=== PATIENT | female | born 2000 | race Caucasian/White ===

== ENCOUNTER 2019-10-12 21:21 | Emergency (ER) | payer MEDICAID ==
[~2019-10-12] VITALS: Ht 152.4 cm; Wt 62.0 kg
--- NOTE | 2019-10-12 21:26 | PHYS DOC ---
General Adult HPI: HPI: Patient is a 19 year old female who presents with above hx and complaints of dog bite. Pt. however left before completing check in. Review of Systems: Review of Systems: Pt. left before checkin. Heart Score: Risk Factors: Risk Factors: DM, Current or recent (<one month) smoker, HTN, HLP, family history of CAD, obesity. Risk Scores: Score 0 - 3: 2.5% MACE over next 6 weeks - Discharge Home Score 4 - 6: 20.3% MACE over next 6 weeks - Admit for Clinical Observation Score 7 - 10: 72.7% MACE over next 6 weeks - Early Invasive Strategies Physical Exam: PE: Left before check in. EKG: EKG: [] Radiology/Procedures: Radiology/Procedures: [] Course & Med Decision Making: Course & Med Decision Making Pertinent Labs and Imaging studies reviewed. (See chart for details) Dog bite. Pt. left before complete check in. [] Dragon Disclaimer: Dragon Disclaimer: This electronic medical record was generated, in whole or in part, using a voice recognition dictation system. Departure Departure: Disposition: 01 HOME/RESIDENCE PRIOR TO ADM Condition: KRISS ESPINOSA MD October 12, 2019 21:26
== END 2019-10-12 21:22 | disposition left against medical advice (07) ==
LOC: ER 21:21
DX: T14.8XXA Other injury of unspecified body region, initial encounter (principal); Z53.21 Procedure and treatment not carried out due to patient leaving prior to being seen by health care provider; W54.0XXA Bitten by dog, initial encounter; Y93.89 Activity, other specified; Y92.89 Other specified places as the place of occurrence of the external cause; Y99.8 Other external cause status

== ENCOUNTER 2019-11-04 09:55 | Emergency (ER) | payer BC, MEDICAID ==
[~2019-11-04] VITALS: Ht 175.3 cm; Wt 101.7 kg
[2019-11-04 10:06] VITALS: BP 139/87
[2019-11-04] MEDS ORDERED: METOCLOPRAMIDE HCL 10 MG/2 ML VIAL. IV ONE (10:45)
[2019-11-04] MEDS ORDERED: diphenhydrAMINE 50 MG/ML VIAL IVP ONE (10:45)
[2019-11-04] MEDS ORDERED: KETOROLAC 30 MG/ML VIAL. IV ONE (10:45)
[2019-11-04] MEDS ORDERED: IV NORMAL SALINE 1,000ML 1,000 ML IV ONE (10:45)
[2019-11-04] MEDS ORDERED: methylPREDNISolone SOD SUCC PF 125 MG/2 ML VIAL. IV ONE (10:45)
[2019-11-04] MEDS ORDERED: methylPREDNISolone SOD SUCC PF 125 MG/2 ML VIAL. ONE (10:49)
[2019-11-04] MEDS ORDERED: METO10TA81 PO (11:18)
[2019-11-04] MEDS ORDERED: PRED20TA PO (11:18)
--- NOTE | 2019-11-04 11:18 | PHYS DOC ---
Past History Past Medical History: No Pertinent History Past Surgical History: Tonsillectomy Alcohol Use: Rarely General Adult EDM: Chief Complaint: HEADACHE HPI: HPI: 19-year-old female presents with a two-week history of headache that she describes as global and throbbing. She denies any lateralizing neurologic weakness. She denies any fever or neck pain. She has had some bit of a rash on her elbows that she states is pruritic. She has been taking Tylenol and Motrin at home without much relief. She does describe both photophobia and phonophobia. She has had some nausea secondary to the severity of the headache. [] Review of Systems: Review of Systems: Constitutional: Denies fever or chills Eyes: Denies change in visual acuity HENT: Denies nasal congestion or sore throat Respiratory: Denies cough or shortness of breath Cardiovascular: Denies chest pain or edema GI: Denies abdominal pain, nausea, vomiting, bloody stools or diarrhea : Denies dysuria Musculoskeletal: Denies back pain or joint pain Integument: Rash on elbows faint rash on chest Neurologic: Reports headache Endocrine: Denies polyuria or polydipsia Lymphatic: Denies swollen glands Psychiatric: Denies depression or anxiety Heart Score: Risk Factors: Risk Factors: DM, Current or recent (<one month) smoker, HTN, HLP, family history of CAD, obesity. Risk Scores: Score 0 - 3: 2.5% MACE over next 6 weeks - Discharge Home Score 4 - 6: 20.3% MACE over next 6 weeks - Admit for Clinical Observation Score 7 - 10: 72.7% MACE over next 6 weeks - Early Invasive Strategies Current Medications: Current Meds: Current Medications Medications (Trade) Dose Ordered Sig/Daniel Start Time Stop Time Status Last Admin Dose Admin Diphenhydramine HCl (Benadryl) 25 mg 1X ONCE 11/04/19 10:45 11/04/19 10:46 DC 11/04/19 10:45 25 MG Ketorolac Tromethamine (Toradol 30mg Vial) 30 mg 1X ONCE 11/04/19 10:45 11/04/19 10:46 DC 11/04/19 10:45 30 MG Methylprednisolone Sodium Succinate (SOLU-Medrol 125MG VIAL) 125 mg STK-MED ONCE 11/04/19 10:49 11/04/19 10:50 DC Metoclopramide HCl (Reglan Vial) 10 mg 1X ONCE 11/04/19 10:45 11/04/19 10:46 DC 11/04/19 10:45 10 MG Sodium Chloride 1,000 ml @ 1,000 mls/hr 1X ONCE 11/04/19 10:45 11/04/19 11:44 11/04/19 10:45 1,000 MLS/HR Allergies: Allergies: Allergies Coded Allergies Type Severity Reaction Last Updated Verified No Known Drug Allergies 11/04/19 No Physical Exam: PE: Constitutional: Well developed, well nourished, mild to moderate distress, non- toxic appearance. [] HENT: Normocephalic, atraumatic, bilateral external ears normal, oropharynx moist, no oral exudates, nose normal. [] Eyes: PERRLA, EOMI, conjunctiva normal, no discharge. [] Neck: Normal range of motion, no tenderness, supple, no stridor. [] Cardiovascular:Heart rate regular rhythm, no murmur [] Lungs & Thorax: Bilateral breath sounds clear to auscultation [] Abdomen: Bowel sounds normal, soft, no tenderness, no masses, no pulsatile masses. [] Skin: Eczematous appearing rash to the elbows. [] Back: No tenderness, no CVA tenderness. [] Extremities: No tenderness, no cyanosis, no clubbing, ROM intact, no edema. [] Neurologic: Alert and oriented X 3, normal motor function, normal sensory function, no focal deficits noted. [] Psychologic: Anxious l. [] Current Patient Data: Labs: Laboratory Tests Test 11/04/19 10:21 POC Urine HCG, Qualitative hcg negative (Negative) Vital Signs: Vital Signs Date Time Temp Pulse Resp B/P (MAP) Pulse Ox O2 Delivery O2 Flow Rate FiO2 11/04/19 10:06 98.5 99 16 139/87 (104) 98 Room Air EKG: EKG: [] Radiology/Procedures: Radiology/Procedures: [] Course & Med Decision Making: Course & Med Decision Making Pertinent Labs and Imaging studies reviewed. (See chart for details) [ED course: Evaluation reveals a 19-year-old female with migraine headache. She was given IV normal saline, Reglan, Benadryl, Toradol with near complete resolution of her symptoms. We will go and start her on a Medrol Dosepak to take for her rash. I will go ahead and also give her some Reglan to take as needed for her headaches.] Josephine Disclaimer: Josephine Disclaimer: This electronic medical record was generated, in whole or in part, using a voice recognition dictation system. Departure Departure: Impression: Primary Impression: Migraine Qualified Codes: G43.901 - Migraine, unspecified, not intractable, with status migrainosus Disposition: HOME/RESIDENCE PRIOR TO ADM Condition: STABLE Referrals: PCP,MARY (PCP) Patient Instructions: Eczema, Migraine Headache Additional Instructions: Take medication as directed. Return to the emergency department with any new or concerning symptoms Scripts Prednisone (PREDNISONE) 20 Mg Tablet 1 TAB PO TID for Bronchitis for 5 Days, #15 TAB Prov: CLAUDETTE KRISHNAN DO 11/04/19 Metoclopramide Hcl (REGLAN) 10 Mg Tablet 10 MG PO PRN Q8HRS PRN for HEADACHE, #30 TAB 3 Refills Take 25 mg of Benadryl with each dose Prov: CLAUDETTE KRISHNAN DO 11/04/19 CLAUDETTE KRISHNAN DO Nov 04, 2019 11:18
== END 2019-11-04 11:35 | disposition home or self-care (01) ==
LOC: ER 09:55
DX: G43.901 Migraine, unspecified, not intractable, with status migrainosus (principal); R21 Rash and other nonspecific skin eruption; L29.9 Pruritus, unspecified
CPT/HCPCS: 81025; 96374; 96375; 99284; J1200; J1885; J2765; J2930; J7030

== ENCOUNTER 2019-11-12 22:56 | Emergency (ER) | payer MEDICAID ==
[~2019-11-12] VITALS: Ht 175.3 cm; Wt 99.0 kg
[2019-11-12 22:56] VITALS: BP 149/95
[~2019-11-12 22:56] MED LIST: METO10TA81 PO; PRED20TA PO
--- NOTE | 2019-11-12 23:15 | PHYS DOC ---
Past History Past Medical History: No Pertinent History Past Surgical History: Tonsillectomy Smoking: Non-smoker Alcohol Use: Rarely General Adult EDM: Chief Complaint: vaginal discharge, insect bite HPI: HPI: Patient is a 19 year old female who presents for evaluation of a couple of items. When she has an insect bite/early abscess on her leg. That started about 24 hours ago. Also for about 2 weeks patient has had some vaginal itching and discharge. Patient has some burning, urgency and frequency with urination. Patient had tried some Monistat recently with no improvement of symptoms. Patient denies any fevers or chills. Patient is otherwise nontoxic appearing Review of Systems: Review of Systems: Constitutional: Denies fever or chills Eyes: Denies change in visual acuity HENT: Denies nasal congestion or sore throat Respiratory: Denies cough or shortness of breath Cardiovascular: Denies chest pain or edema GI: Denies abdominal pain, nausea, vomiting, bloody stools or diarrhea : has dysuria and vaginal discharge Musculoskeletal: Denies back pain or joint pain Integument: Denies rash Neurologic: Denies headache, focal weakness or sensory changes Endocrine: Denies polyuria or polydipsia Lymphatic: Denies swollen glands Psychiatric: Denies depression or anxiety Heart Score: Risk Factors: Risk Factors: DM, Current or recent (<one month) smoker, HTN, HLP, family history of CAD, obesity. Risk Scores: Score 0 - 3: 2.5% MACE over next 6 weeks - Discharge Home Score 4 - 6: 20.3% MACE over next 6 weeks - Admit for Clinical Observation Score 7 - 10: 72.7% MACE over next 6 weeks - Early Invasive Strategies Allergies: Allergies: Allergies Coded Allergies Type Severity Reaction Last Updated Verified No Known Drug Allergies 11/04/19 No Physical Exam: PE: Constitutional: Well developed, well nourished, mild acute distress, non-toxic appearance. [] HENT: Normocephalic, atraumatic, bilateral external ears normal, oropharynx moist, no oral exudates, nose normal. [] Eyes: PERRL, EOMI, conjunctiva normal, no discharge. [] Neck: Normal range of motion, no tenderness, supple, no stridor. [] Cardiovascular:Heart rate regular rhythm, no murmur [] Lungs & Thorax: Bilateral breath sounds clear to auscultation [] Abdomen: Bowel sounds normal, soft, no tenderness, [] Skin: Warm, dry, no erythema, no rash. [] Back: No tenderness [] Extremities: No tenderness, no cyanosis, ROM intact, no edema. [] Neurologic: Alert and oriented X 3, normal motor function, normal sensory function, no focal deficits noted. [] Psychologic: Affect normal, judgement normal, mood normal. [] : Nursing principal clerk present, scant vaginal discharge present, no uterine or adnexal tenderness, the skin on the upper right thigh near the buttock fold did show signs of cellulitis but there was no consolidated abscess that could be drained EKG: EKG: [] Radiology/Procedures: Radiology/Procedures: Laboratory Tests Test 11/12/19 23:05 11/12/19 23:20 Urine Collection Type Unknown Urine Color Yellow Urine Clarity Clear Urine pH 5.5 Urine Specific [place] >=1.030 Urine Protein 30 mg/dl Urine Glucose (UA) Neg mg/dL Urine Ketones (Stick) Neg mg/dL Urine Blood Neg Urine Nitrite Neg Urine Bilirubin Neg Urine Urobilinogen Dipstick 0.2 mg/dL Urine Leukocyte Esterase Neg Urine RBC 0 /HPF Urine WBC 1-4 /HPF Urine Squamous Epithelial Cells Mod /LPF Urine Bacteria 0 /HPF Urine Test Negative Bedside Urine HCG, Qualitative hcg negative Current Medications Medications (Trade) Dose Ordered Sig/Daniel Route PRN Reason Start Time Stop Time Status Last Admin Dose Admin Ceftriaxone Sodium (Rocephin Im) 250 mg 1X ONCE IM 11/12/19 23:30 11/12/19 23:31 DC 11/12/19 23:50 Azithromycin (Zithromax) 1,000 mg 1X ONCE PO 11/12/19 23:30 11/12/19 23:31 DC 11/12/19 23:51 Fluconazole (Diflucan) 100 mg 1X ONCE PO 11/12/19 23:30 11/12/19 23:31 DC 11/12/19 23:51 [] Course & Med Decision Making: Course & Med Decision Making Pertinent Labs and Imaging studies reviewed. (See chart for details) [] Dragon Disclaimer: Dragon Disclaimer: This electronic medical record was generated, in whole or in part, using a voice recognition dictation system. 0004 stable, patient treated for presumptive vaginitis with Rocephin 200 mg IM, Zithromax 1 g p.o. Due to patient's history of frequent yeast infections patient given a dose of Diflucan. To treat her cellulitis patient will receive a prescription for doxycycline 100 mg 1 tab p.o. twice daily for 7 days Departure Departure: Impression: Primary Impression: Vaginitis Qualified Codes: N76.0 - Acute vaginitis Additional Impression: Cellulitis of leg, right Disposition: HOME/RESIDENCE PRIOR TO ADM Condition: STABLE Referrals: PCP,NO (PCP) Patient Instructions: Cellulitis, [id number], Vaginitis, [id number] Additional Instructions: Take medication as directed, use hot compresses on the area of infection on your leg daily, see your doctor for close follow-up in the next several days. The VENDOR MANAGEMENT CONSULTANT we have available is Dr. España and their number is [phone] Justification of Admission: Justification of Admission: Justification of Admission Dx: N/A GABRIEL COOK DO Nov 12, 2019 23:15
[2019-11-12] MEDS ORDERED: AZITHROMYCIN 250 MG TABLET. PO ONE (23:30)
[2019-11-12] MEDS ORDERED: cefTRIAXone IM 250 MG VIAL IM ONE (23:30)
[2019-11-12] MEDS ORDERED: FLUCONAZOLE 100 MG TABLET. PO ONE (23:30)
[2019-11-12 23:54] LABS: CLARITY,URINE CLEAR; COLOR,URINE YELLOW; U PREG PATIENT NEGATIVE (NEG)
[2019-11-12 23:57] LABS: BILIRUBIN,URINE NEG (NEG); GLUCOSE,URINE NEG (NEG); NITRITE,URINE NEG (NEG); RBC,URINE 0 /HPF (0-2); UROBILINOGEN,URINE 0.2 mg/dL (0.2 mg/dL)
[2019-11-12 23:58] LABS: BACTERIA,URINE 0 /HPF (0-FEW); SQUAMOUS EPITHELIAL CELL,UR MOD /LPF
[2019-11-13] MEDS ORDERED: DOXY100C2 PO (00:07)
[2019-11-14 17:12] LABS: CHLAMYDIA PROBE Positive (Negative)
== END 2019-11-13 00:10 | disposition home or self-care (01) ==
LOC: ER 22:56
DX: N76.0 Acute vaginitis (principal); L03.115 Cellulitis of right lower limb
CPT/HCPCS: 81001; 81025; 87491; 87591; 96372; 99283; J0456; J0696; Q0111; 36415